=== PATIENT | female | born 1990 | race Caucasian/White ===

== ENCOUNTER → 2019-11-08 | Outpatient (CLI) | payer OTHER | LOC: M.LAB 08:39 | DX: Z11.59 Encounter for screening for other viral diseases (principal); Z20.828 Contact with and (suspected) exposure to other viral communicable diseases ==

== ENCOUNTER 2021-04-08 10:41 | Emergency (ER) | payer OTHER ==
[~2021-04-08] VITALS: Ht 175.3 cm; Wt 70.3 kg
[2021-04-08] MEDS ORDERED: ZOFRAN4 MG PO (10:51)
[2021-04-08] MEDS ORDERED: FLONASE 0.05%50 MCG NARES (10:51)
[2021-04-08] MEDS ORDERED: MUCINEX600 MG PO (10:51)
[2021-04-08 11:43] LABS: ABSOLUTE EOSINOPHILS 0.1 thou/uL (0.0-0.7); ABSOLUTE LYMPHOCYTES 1.3 thou/uL (0.8-5.3); ABSOLUTE MONOCYTES 0.3 thou/uL (0.0-1.2); BASOPHILS 0.2 %; EOSINOPHILS 1.1 %; HEMATOCRIT 40.4 % (37.0-47.0); HEMOGLOBIN 13.5 gm/dL (12.0-15.0); LYMPHOCYTES 17.4 %; MCHC 33.4 g/dL (28.0-37.0); MCV 86.8 fL (80.0-100.0); MONOCYTES 4.3 %; MPV 9.7 fl. (7.2-11.1); NUCLEATED RBCS 0 /100WBC; PLATELET COUNT* 213 thou/uL (150-400); RBC 4.66 mil/uL (4.20-5.00); RDW-CV 12.9 % (10.5-14.5); WBC 7.8 thou/uL (4.0-11.0)
[2021-04-08 11:50] LABS: CALCIUM 8.4 mg/dL (8.5-10.1); CREATININE 0.7 mg/dL (0.6-1.3); POTASSIUM 3.9 mmol/L (3.5-5.1)
[2021-04-08 11:56] LABS: ALBUMIN 3.8 g/dL (3.4-5.0); TOTAL BILIRUBIN 0.4 mg/dL (<0.1-1.0); TOTAL PROTEIN 6.9 g/dL (6.4-8.2)
[2021-04-08 13:55] LABS: URINE BILIRUBIN NEGATIVE (Negative); URINE BLOOD NEGATIVE (Negative); URINE CLARITY CLEAR; URINE COLOR YELLOW; URINE GLUCOSE-RANDOM NEGATIVE (Negative); URINE KETONES 1+ (Negative); URINE LEUKOCYTES-REFLEX TRACE (Negative); URINE NITRITE-REFLEX NEGATIVE (Negative); URINE PROTEIN NEGATIVE (Negative); URINE SPECIFIC GRAVITY <= 1.005 (1.005-1.030); URINE UROBILINOGEN 0.2 E.U./dl (0.2-1.0)
[2021-04-08 14:11] LABS: BACTERIA-REFLEX 1-9 Few /HPF (None Seen); CASTS None Seen /LPF (None Seen); CRYSTALS None Seen /LPF (None Seen); SQUAMOUS 0-3 Few /LPF (0-3); URINE RBC 0-2 Rare /HPF (0-2); URINE WBC-REFLEX 0-5 Rare /HPF (0-5)
[2021-04-08] MEDS ORDERED: REGLAN 10 MG TA10 MG PO (14:24)
[2021-04-08 14:36] VITALS: BP 111/62
== END 2021-04-08 14:38 | disposition home or self-care (01) ==
LOC: M.ERS 10:41
PROVIDERS: Nurse Practitioner Family
DX: O21.0 Mild hyperemesis gravidarum (principal); Z3A.01 Less than 8 weeks gestation of pregnancy; Z79.899 Other long term (current) drug therapy

== ENCOUNTER 2021-04-10 11:15 | Emergency (ER) | payer OTHER ==
[~2021-04-10] VITALS: Ht 175.3 cm; Wt 70.3 kg
[~2021-04-10 11:15] MED LIST: FLONASE 0.05%50 MCG NARES; MUCINEX600 MG PO; REGLAN 10 MG TA10 MG PO; ZOFRAN4 MG PO
[2021-04-10 11:49] LABS: ABSOLUTE BASOPHILS 0.1 thou/uL (0.0-0.2); ABSOLUTE EOSINOPHILS 0.1 thou/uL (0.0-0.7); ABSOLUTE LYMPHOCYTES 1.1 thou/uL (0.8-5.3); ABSOLUTE MONOCYTES 0.4 thou/uL (0.0-1.2); ABSOLUTE NEUTROPHILS 6.6 thou/uL (1.6-8.1); BASOPHILS 0.8 %; EOSINOPHILS 0.8 %; HEMATOCRIT 39.6 % (37.0-47.0); HEMOGLOBIN 13.2 gm/dL (12.0-15.0); LYMPHOCYTES 13.6 %; MCHC 33.4 g/dL (28.0-37.0); MCV 86.6 fL (80.0-100.0); MONOCYTES 5.1 %; MPV 9.8 fl. (7.2-11.1); NUCLEATED RBCS 0 /100WBC; PLATELET COUNT* 235 thou/uL (150-400); POLYS 79.7 %; RBC 4.57 mil/uL (4.20-5.00); RDW-CV 13.2 % (10.5-14.5); WBC 8.3 thou/uL (4.0-11.0)
[2021-04-10 11:59] LABS: CALCIUM 8.4 mg/dL (8.5-10.1); CREATININE 0.7 mg/dL (0.6-1.3); POTASSIUM 3.6 mmol/L (3.5-5.1)
[2021-04-10 12:03] LABS: URINE BLOOD NEGATIVE (Negative); URINE CLARITY CLEAR; URINE COLOR YELLOW; URINE GLUCOSE-RANDOM NEGATIVE (Negative); URINE LEUKOCYTES-REFLEX NEGATIVE (Negative); URINE NITRITE-REFLEX NEGATIVE (Negative); URINE PROTEIN TRACE (Negative); URINE SPECIFIC GRAVITY 1.025 (1.005-1.030)
[2021-04-10 12:04] LABS: ALBUMIN 3.9 g/dL (3.4-5.0); TOTAL BILIRUBIN 0.4 mg/dL (<0.1-1.0); TOTAL PROTEIN 6.8 g/dL (6.4-8.2)
[2021-04-10 12:04] LABS: URINE BILIRUBIN 1+ (Negative); URINE KETONES 3+ (Negative)
[2021-04-10 12:06] LABS: ICTOTEST (BILI CONFIRMATORY) Negative (Negative)
[2021-04-10] MEDS ORDERED: AMOXICILLIN 50500 MG PO (13:31)
[2021-04-10 13:40] VITALS: BP 106/57
== END 2021-04-10 13:40 | disposition home or self-care (01) ==
LOC: M.ERS 11:15
PROVIDERS: Physician Assistant
DX: O21.8 Other vomiting complicating pregnancy (principal); O26.891 Other specified pregnancy related conditions, first trimester; R10.11 Right upper quadrant pain; R10.30 Lower abdominal pain, unspecified; H61.21 Impacted cerumen, right ear; R09.81 Nasal congestion; R05 Cough; Z3A.01 Less than 8 weeks gestation of pregnancy; Z87.42 Personal history of other diseases of the female genital tract

== ENCOUNTER 2021-04-11 17:45 | Emergency (ER) | payer OTHER ==
[~2021-04-11] VITALS: Ht 175.3 cm; Wt 70.3 kg
[~2021-04-11 17:45] MED LIST changes: +AMOXICILLIN 50500 MG PO
[2021-04-11 18:34] LABS: ABSOLUTE BASOPHILS 0.1 thou/uL (0.0-0.2); ABSOLUTE EOSINOPHILS 0.1 thou/uL (0.0-0.7); ABSOLUTE LYMPHOCYTES 1.5 thou/uL (0.8-5.3); ABSOLUTE MONOCYTES 0.6 thou/uL (0.0-1.2); ABSOLUTE NEUTROPHILS 6.9 thou/uL (1.6-8.1); BASOPHILS 1.2 %; EOSINOPHILS 1.2 %; HEMATOCRIT 37.6 % (37.0-47.0); HEMOGLOBIN 12.6 gm/dL (12.0-15.0); LYMPHOCYTES 16.3 %; MCH 28.9 pg (26.0-34.0); MCHC 33.4 g/dL (28.0-37.0); MCV 86.7 fL (80.0-100.0); MONOCYTES 6.9 %; MPV 9.9 fl. (7.2-11.1); NUCLEATED RBCS 0 /100WBC; PLATELET COUNT* 231 thou/uL (150-400); POLYS 74.4 %; RBC 4.34 mil/uL (4.20-5.00); WBC 9.2 thou/uL (4.0-11.0)
[2021-04-11 18:43] LABS: CALCIUM 8.2 mg/dL (8.5-10.1); CREATININE 0.7 mg/dL (0.6-1.3); POTASSIUM 3.8 mmol/L (3.5-5.1)
[2021-04-11 18:48] LABS: ALBUMIN 3.6 g/dL (3.4-5.0); TOTAL BILIRUBIN 0.4 mg/dL (<0.1-1.0); TOTAL PROTEIN 6.5 g/dL (6.4-8.2)
[2021-04-11 20:35] VITALS: BP 121/58
== END 2021-04-11 20:36 | disposition home or self-care (01) ==
LOC: M.ERS 17:45
PROVIDERS: Physician Assistant
DX: O21.9 Vomiting of pregnancy, unspecified (principal); Z3A.01 Less than 8 weeks gestation of pregnancy; Z79.899 Other long term (current) drug therapy